=== PATIENT | female | born 1975 | race Caucasian/White ===

== ENCOUNTER 2020-07-21 16:44 | Outpatient (REF) | payer OTHER, SELFPAY ==
--- NOTE | 2020-07-21 16:51 | XR_ITS ---
EXAMINATION: LEFT WRIST AND LEFT HAND CLINICAL INFORMATION: Left hand and left wrist pain COMPARISON: None TECHNIQUE: 3 views left wrist, 3 views left hand FINDINGS: No bone joint or soft tissue abnormality is seen. XR/XR wrist LT min 3V IMPRESSION: Negative radiographs of the left wrist and hand.
--- NOTE | 2020-07-21 16:51 | XR_ITS ---
EXAMINATION: LEFT WRIST AND LEFT HAND CLINICAL INFORMATION: Left hand and left wrist pain COMPARISON: None TECHNIQUE: 3 views left wrist, 3 views left hand FINDINGS: No bone joint or soft tissue abnormality is seen. XR/XR hand LT min 3V IMPRESSION: Negative radiographs of the left wrist and hand.
== END 2020-07-21 16:45 | disposition home or self-care (01) ==
LOC: HO.HMGCX 16:44
PROVIDERS: Visit Provider Hospitalist
DX: M25.532 Pain in left wrist (principal)
CPT/HCPCS: 73110; 73130